=== PATIENT | male | born 1945 | race Two or more races ===

== ENCOUNTER 2017-07-16 05:59 | Day surgery (SDC) | payer BC ==
[~2017-07-16] VITALS: Ht 170.2 cm; Wt 87.6 kg
[2017-07-16] VITALS (9 sets, daily range): BP systolic 150–161; BP diastolic 61–77; PULSE 53–66; RESP 15–22; Ht 170.2 cm; Wt 87.6 kg
[2017-07-16] MEDS ORDERED: CEFAZOLIN 2 GM/50 ML (PMX) 50 ML IVPB ONE (06:00)
[2017-07-16] MEDS ORDERED: SOD CHLORIDE 0.9% 1,000 ML IV SCH (06:00)
[2017-07-16] MEDS ORDERED: ASPI-664 PO (06:50)
[2017-07-16] MEDS ORDERED: ATORVASTATIN PO (06:50)
[2017-07-16] MEDS ORDERED: ALBU18HF INHALATION (06:50)
[2017-07-16 07:08] LABS: BASOPHIL # 0.1 10^3/ul (0.0-0.1); BASOPHILS % 0.7 % (0.0-2.0); EOSINOPHILS # 0.4 10^3/ul (0.0-0.5); EOSINOPHILS % 4.3 % (0.0-7.0); HEMOGLOBIN 14.2 g/dl (12.0-16.0); LYMPHOCYTES # 3.6 10^3/ul (0.8-2.9); LYMPHOCYTES % 42.4 % (15.0-51.0); MEAN CORPUSCULAR HEMOGLOBIN 31.3 pg (29.0-33.0); MEAN CORPUSCULAR VOLUME 94.7 fl (82.0-101.0); MEAN PLATELET VOLUME 10.5 fl (7.4-10.4); MONOCYTE # 0.7 10^3/ul (0.3-0.9); NEUTROPHILS % 44.2 % (39.0-77.0); PLATELET COUNT 191 10^3/UL (140-415); RED BLOOD COUNT 4.54 10^6/ul (4.20-5.40); RED CELL DISTRIBUTION WIDTH 12.1 % (11.5-14.5); WHITE BLOOD COUNT 8.4 10^3/ul (4.8-10.8)
[2017-07-16 07:21] LABS: INR 1.04; PARTIAL THROMBOPLASTIN TIME 28.6 Sec (25.0-35.0); PROTIME 13.6 Sec (12.2-14.2); PT RATIO 1.1
[2017-07-16 07:28] LABS: ALBUMIN/GLOBULIN RATIO 1.29; BILIRUBIN,INDIRECT 0.5 mg/dl (0-1.1); BILIRUBIN,TOTAL 0.5 mg/dl (0.2-1.3); TOTAL PROTEIN 7.1 g/dl (6.1-8.1)
[2017-07-16 07:34] LABS: CALCIUM 9.7 mg/dl (8.4-10.2); CREATININE 0.8 mg/dl (0.44-1.00); POTASSIUM 4.5 mmol/L (3.5-5.1)
[2017-07-16] MEDS ORDERED: BUPIVACAINE 0.25% (MPF) 30 ML INJ ONE (07:46)
--- NOTE | 2017-07-16 08:07 | HPN ---
Date/Time of Note Date/Time of Note DATE: 07/16/17 TIME: 08:07 Interval H&P Admission Note Pt. seen H&P reviewed: No system changes ANALI JOSÉ MD Jul 16, 2017 08:07
[2017-07-16] MEDS ORDERED: MIDAZOLAM 1 MG/ML 2 ML INJ ONE (08:17)
[2017-07-16] MEDS ORDERED: FENTAnyl 50 MCG/ML VIAL ONE (08:17)
[2017-07-16] MEDS ORDERED: BACITRACIN 0.9 GM OINT ONE (08:41)
[2017-07-16] MEDS ORDERED: LIDOCAINE 2% (SDV) 5 ML INJ ONE (08:49)
[2017-07-16] MEDS ORDERED: ETOMIDATE 20 MG INJ ONE (08:49)
[2017-07-16] MEDS ORDERED: CEFAZOLIN 1 GM INJ ONE (08:49)
[2017-07-16] MEDS ORDERED: ONDANSETRON 4 MG INJ ONE (08:50)
[2017-07-16] MEDS ORDERED: ONDANSETRON 4 MG INJ IV PRN (09:00)
[2017-07-16] MEDS ORDERED: MEPERIDINE 25 MG INJ IV PRN (09:00)
[2017-07-16] MEDS ORDERED: FENTAnyl 50 MCG/ML VIAL IV PRN (09:00)
[2017-07-16] MEDS ORDERED: DIPHENHYDRAMINE 50 MG INJ IV PRN (09:00)
[2017-07-16] MEDS ORDERED: IBUPROFEN 600 MG TAB PO PRN (09:00)
[2017-07-16] MEDS ORDERED: KETOROLAC 30 MG INJ IV PRN (09:00)
--- NOTE | 2017-07-16 09:00 | OPR ---
Date/Time of Note Date/Time of Note DATE: 07/16/17 TIME: 08:51 Operative Report Procedure Date: Jul 16, 2017 Preoperative Diagnosis Soft tissue mass of scalp Postoperative Diagnosis Soft tissue mass of scalp Operation Performed Excision soft tissue mass of scalp 2cm Surgeon: ANALI JOSÉ MD Anesthesia Type: general Anesthesiologist: HERRERA LANGE MD Estimated Blood Loss: minimal Transfusion Required: no Specimens scalp mass Grafts/Implants: none Complications: no Pt Condition Post Procedure: stable Disposition: PACU Indications 72M with history of scalp mass. Present x 2 months. Growing and causing pain. The patient was scheduled for elective excision for symptom relief and definitive pathological diagnosis. All risks and benefits of the procedure were explained to the patient in detail including, but not limited to: wound infection, excessive bleeding, post-operative seroma/hematoma formation, mass recurrence, etc. The patient fully understood and wished to proceed with the procedure. Informed consent was obtained. Operative\Procedure Findings mass consistent to sebaceous cyst Procedure Description The patient was brought to the operating room and placed supine on the operating table. Bilateral sequential compression devices were placed on both lower extremities. A dose of broad spectrum antibiotics was given. After the induction of smooth general LMA anesthesia the patient's scalp was prepped and draped in standard surgical fashion. The mass located on the right side of the scalp was marked and confirmed with the patient in the pre-operative holding area. After performance of the surgical timeout, 0.25% marcaine local anesthesia was injected in a radial fashion around the mass creating a field block. An incision was then made over the mass using a 15-blade scalpel. The incision was carried through the skin and dermis using the scalpel. Upon reaching the dermis there was extrusion of cheesy sebaceous material. This was suctioned out. The cyst capsule was then dissected circumferentially using metzenbaum scissors, transected at its base and passed off the field as specimen. It measured approximately 2cm. The wound cavity was then irrigated. Hemostasis was noted to be adequate. Further local anesthesia was injected around the skin of the incision site. The skin was then reapproximated using interrupted 3-0 Nylon suture. The incision was then cleaned. Bacitracin ointment was applied as well as a sterile dressing. The patient was the awoken from anesthesia and transported to the recovery room in stable condition. All counts were correct at the end of the case x 2. ANALI JOSÉ MD Jul 16, 2017 09:00
== END 2017-07-16 10:30 | disposition home or self-care (01) ==
LOC: SDS 05:59 → EDSEX 05:59 → SDS 10:30
PROVIDERS: ATTEND Surgery
DX: L72.11 Pilar cyst (principal); I10 Essential (primary) hypertension; E11.9 Type 2 diabetes mellitus without complications; E78.5 Hyperlipidemia, unspecified; J44.9 Chronic obstructive pulmonary disease, unspecified; I25.10 Atherosclerotic heart disease of native coronary artery without angina pectoris; Z87.891 Personal history of nicotine dependence; Z95.1 Presence of aortocoronary bypass graft
CPT/HCPCS: 11422; 80053; 85025; 85610; 85730; 88307; J0690; J2250; J2405; J3010; Z7512; Z7610